=== PATIENT | female | born 1990 | race Hispanic/Latino ===

== ENCOUNTER 2021-08-26 14:27 | Inpatient (IN) | payer SELFPAY ==
[~2021-08-26] VITALS: Ht 162.6 cm; Wt 71.2 kg
--- NOTE | ~2021-08-26 | OR ---
[facility] [address] [place], [place] [address] Draft DATE OF OPERATION: 08/26/2021 SURGEON: Zenia Mcdermott DO PREOPERATIVE DIAGNOSES: 1. Intrauterine at 36 weeks gestation. 2. Concern for possible concealed abruption. 3. Non-reassuring heart tracing with tachycardia. 4. Chorioamnionitis. POSTOPERATIVE DIAGNOSES: 1. Intrauterine at 36 weeks gestation. 2. Non-reassuring heart tracing with tachycardia. 3. Chorioamnionitis. PROCEDURE PERFORMED: Primary low-transverse delivery. ANESTHESIA: Spinal. INSTALLATION MANAGER: Duane Asif MD ESTIMATED BLOOD LOSS: 1000 mL. COMPLICATIONS: None. DRAINS: Dominguez to gravity. FINDINGS: Delivery of a viable female in the LOP position with no nuchal cord. Clear amniotic fluid. Normal uterus, placenta, and bilateral fallopian tubes. Normal left ovary. Right ovary with a streak appearance. See laboratory for cord gases that are normal. COMPLICATIONS: PATIENT NAME: MERLENE MARTINS OPERATIVE REPORT DATE OF : [birth year] REPORT #: [id number] PHYSICIAN: ZENIA MCDERMOTT DO PCP: ZENIA MCEDRMOTT DO REPORT IS CONFIDENTIAL AND NOT TO BE RELEASED WITHOUT AUTHORIZATION [facility] [address] [place] [address] [place] None. INDICATIONS: Ms. Andre Brooke is a pleasant 31-year-old female with intrauterine at 36 weeks gestation. She presented to Labor and Delivery this morning with severe abdominal pain and contractions. During admission, the patient was noted to have maternal temperature that resolved with oral Tylenol and tachycardia that resolved with IV fluids. On exam, the patient with a small amount of dark vaginal bleeding that was felt to be from the cervical polyp and cervical ectropion. She was admitted to observation status. The patient with very painful regular contractions, uterine and abdominal tenderness, and then developed a return of tachycardia and temperature. Given maternal heart rate in the 150s and heart rate of nearly 200, decision was made to proceed with primary delivery for possible concealed abruption. Risks, benefits, and alternatives were discussed in detail with the patient. The patient understand, wished to proceed with the procedure. TECHNIQUE: The patient was taken to the operating room. A time-out was performed to confirm correct patient and correct procedure. Spinal anesthesia was adequately established. The patient was then prepped and draped in the supine position with a bump under the right hip. Dominguez catheter was inserted and the patient received ampicillin, gentamicin, Flagyl, and azithromycin preoperatively. No heparin was indicated. Once spinal was demonstrated to be adequate, a Pfannenstiel skin incision was made using a surgical scalpel, carried down to the fascia. The fascia was nicked in the midline. The fascial incision was extended bilaterally using curved Bailey scissors. The fascia was grasped with Kwame's, elevated, and the underlying rectus dissected off bluntly and sharply. The rectus was divided in midline bluntly and the peritoneum was entered bluntly. The peritoneal incision was extended bilaterally using blunt dissection. An Joe self retractor was placed and the lower uterine segment identified. Hysterotomy was performed using surgical scalpel and clear amniotic fluid was noted. The surgeon's hand was placed in the uterine cavity and the vertex elevated into the abdomen in the LOP position. The was delivered easily with the assistance of fundal pressure. No nuchal cord was identified. Cord was doubly clamped and cut and the handed to the waiting pediatric team for further care. Cord blood was obtained for gases and for routine analysis. The placenta was then expressed intact with a centrally inserted 3-vessel cord sent to pathology for further evaluation. The uterus was cleared of products of conception and clot. Initial bleeding was noted to be quite heavy with a boggy uterus. This was quickly improved using compression with surgeon's hands, 60 units of Pitocin and 1 liter of LR bolus, and tranexamic acid 1 g IV. The hysterotomy was then repaired using 0 Monocryl in a running locked manner. A second imbricating suture of 2-0 Monocryl was applied. Small hematoma was noted in the left uterine artery and this were made hemostatic with a pyykpy-pb-sruoc O'Geneva stitch. The pelvis was PATIENT NAME: MERLENE MARTINS OPERATIVE REPORT DATE OF : 88 REPORT #: [id number] PHYSICIAN: ZENIA MCDERMOTT DO PCP: ZENIA MCDERMOTT DO REPORT IS CONFIDENTIAL AND NOT TO BE RELEASED WITHOUT AUTHORIZATION [address] [address] [place] irrigated and hemostasis obtained with Bovie electrocautery and [id number] of small oozing serosa of the uterus. Normal left tube and ovary. The right fallopian tube is normal, but the left ovary is not readily identified. The patient denies any history of oophorectomy and on closer inspection somewhat of a streak appearance of the right ovary noted between the infundibulopelvic ligament and the utero-ovarian ligament. The pelvis was again noted to be hemostatic and the peritoneum was then reapproximated using 2-0 Vicryl in a running nonlocked manner. Rectus was then examined, found to be hemostatic. It was then plicated in the midline loosely with interrupted stitches of 0 Vicryl. The fascia was then reapproximated using 0 Vicryl in a running nonlocked manner. Subcu was irrigated and made hemostatic with the judicious use of Bovie electrocautery. Subcu was then reapproximated using 3-0 Vicryl in a running nonlocked manner. Skin was reapproximated using surgical nicole. The uterus was Crede'd for scant amount of blood and the patient was taken to PACU in stable condition. Sponge, instrument, and needle count was correct x2 at the end of the procedure. Dr. Asif was present for all portions of procedure. Zenia Mcdermott DO JTYRELL/SHERRI /[id number] Copies: ~ PATIENT NAME: MERLENE MARTINS OPERATIVE REPORT DATE OF : [birth year] REPORT #: [id number] PHYSICIAN: ZENIA MCDERMOTT DO PCP: ZENIA MCDERMOTT DO REPORT IS CONFIDENTIAL AND NOT TO BE RELEASED WITHOUT AUTHORIZATION
--- NOTE | ~2021-08-26 | OR ---
[facility] [address] [facility] [place] [address] Cancelled DATE OF OPERATION: 08/26/2021 SURGEON: Zenia Mcdermott DO PREOPERATIVE DIAGNOSES: 1. Intrauterine at 36 weeks gestation. DICTATION ENDS HERE DO SUZETTE Anderson/SHERRI /[id number] Copies: ~ PATIENT NAME: MERLENE MARTINS OPERATIVE REPORT DATE OF : [birth year] REPORT #: [id number] PHYSICIAN: ZENIA MCDERMOTT DO PCP: ZENIA MCDERMOTT DO REPORT IS CONFIDENTIAL AND NOT TO BE RELEASED WITHOUT AUTHORIZATION
--- NOTE | 2021-08-26 14:34 | PR ---
[facility] [address] [place], [place] [address] Signed Progress Notes IP Datetime Report Generated by TEA: 08/26/2021 14:34 PROGRESS NOTES: [id number] Impression: Non-reassuring Heart Rate; Intrauterine Infection Other Impressions: Possible abruption Plan: Deliver- Section Informed Consent Obtain: Section Delivery; Risks, Benefits and Alternatives Discussed VITAL SIGNS: [id number] Vital Signs: Reviewed EXAM: [id number] Dilatation: 1.0 Effacement: 50 Station: -2 Contractions: q 2-3 min MEMBRANES: [id number] Comments: Called to pt room. Notified of maternal temp 103.1, tachycardia, and maternal tachycardia. Bedside evaluation demonstrates tender abdomen and small blood clot evacuated by Dr. Robert just prior to my arrival. Discussed concern for possible abruption and recommended emergent delivery via primarly LTCS. Risks/benefits discussed and pt and understand and agree. FETUS A: [id number] FHR Baseline: 160 Variability: Moderate 6-25bpm Accelerations: 15X15 Decelerations: None FHR Category: Category II Presentation: Vertex Comments on Fetus A: No evidence of metabolic acidosis FETUS B: [id number] Signing Physician: Zenia Mcdermott DO Copies: ~ *Electronically Signed* 08/26/21 1436 ZENIA MCDERMOTT DO PATIENT NAME: MERLENE MARTINS PROGRESS NOTE DATE OF : 88 PHYSICIAN: ZENIA MCDERMOTT DO RPT #: [id number] REPORT IS CONFIDENTIAL AND NOT TO BE RELEASED WITHOUT AUTHORIZATION
--- NOTE | 2021-08-26 16:19 | NUR ---
08/26/21 1619 Sheets,Elaine 1531 PT ARRIVED TO PACU ON RA AND REPORT FROM MASTER OCEAN. PT RESTING IN BED AND REPORTS A HEADACHE. MASTER OCEAN AWARE. VSS. PT DENIES PAIN AND NAUSEA. 1600 INCREASE IN BP NOTED AND RN TAKES MANUAL BP, NOT WITHIN NORMAL. PT NOTED TO BE SHAKING AND TEMP NOTED. MD AWARE AND NEW ORDER RECEIVED. PT CONTINUES TO DENY PAIN AND NAUSEA. 1609 MEDICATION GIVEN PER EMAR. 1617 MD AT BEDSIDE TALKING TO PT AND .
--- NOTE | 2021-08-26 19:45 | PR ---
[facility] [address] [place], [place] [address] Signed PP Progress Notes Datetime Report Generated by CPN: 08/26/2021 19:45 SUBJECTIVE: [id number] Pain: Within Normal Limits Nausea/Vomiting: Denies Flatus: No Bowel Movement: No Vital Signs: [id number] Vital Signs: Reviewed Notable Details: hypotension improved, mild tachycardia, good urine output EXAM: Ongoing Cardiovascular: Normal Respiratory: Normal Abdomen/Uterus: Normal Lochia: Normal Vulva/Perineum: Not Done Breasts: Not Done CVA Tenderness: Not Done Extremities: Normal Incision: Normal Progress: Normal Exam Comments: Fundus firm U-2 nontender. Incision clean dry bandaging. Urine cath draining large amoung clear light yellow urine IMPRESSION/PLAN/PROCEDURES: [id number] Impression: Endometritis Plan: Continue Present Management; Antibiotic Therapy Progress Notes: Pt seen and examined. Doing well. Sitting up in bed . Laughing and reports that she feels very good. Denies fever or malaise. Afebrile. Will check CBC. CMP ordered by Dr. Robert normal. Continue Abx for at least 24 hrs afebrile. All questions answered. Signing Physician: Zenia Mcdermott DO Copies: ~ *Electronically Signed* 08/26/211944 ZENIA MCDERMOTT DO PATIENT NAME: DANDRE LANDMERLENEFAIZAN PROGRESS NOTE DATE OF : 89 PHYSICIAN: ZENIA MCDERMOTT DO RPT #: [id number] REPORT IS CONFIDENTIAL AND NOT TO BE RELEASED WITHOUT AUTHORIZATION
--- NOTE | 2021-08-27 08:57 | PR ---
[facility] [address] [place], [place] [address] Signed PP Progress Notes Datetime Report Generated by CPN: 08/27/2021 08:57 SUBJECTIVE: [id number] Pain: Within Normal Limits Nausea/Vomiting: Denies Flatus: Yes Bowel Movement: No Vital Signs: [id number] Vital Signs: Reviewed Notable Details: Afebrile, mild tachy 100's, good urine output. EXAM: Ongoing Cardiovascular: Normal Respiratory: Normal Abdomen/Uterus: Normal Lochia: Not Done Vulva/Perineum: Not Done Breasts: Not Done CVA Tenderness: Normal Extremities: Normal Incision: Normal Progress: Abnormal Exam Comments: Fundus firm U-2 nontender. Bandage clean / dry IMPRESSION/PLAN/PROCEDURES: [id number] Impression: Normal Progression; Difficulties Other Impression: Fever resolved Plan: Continue Present Management; Antibiotic Therapy Procedures: Antibiotics Progress Notes: Pt seen and examined. Doing very well. No fevers or chills overnight. Pt reports that she "feels great and not sick at all." Good urine output. Hgb 9.5, WBCs 14.8, and normal CMP. Pain and lochia minimal. with some difficulty with latch. Will have RN help patient. Plan to continue abxs until 24 hrs afebrile and then will discontinue. D/C porras and ambulate ad mason. All questions answered. Signing Physician: Zenia Mcdermott DO Copies: *Electronically Signed* 08/27/21 0857 ZENIA MCDERMOTT DO PATIENT NAME: MERLENE MARTINS PROGRESS NOTE DATE OF : [birth year] PHYSICIAN: ZENIA MCDERMOTT DO RPT #: [id number] REPORT IS CONFIDENTIAL AND NOT TO BE RELEASED WITHOUT AUTHORIZATION [facility] [address] [place] [address] Signed ~ *Electronically Signed* 08/27/21 0857 ZENIA MCDERMOTT DO PATIENT NAME: MERLENE MARTINS PROGRESS NOTE DATE OF : [birth year] PHYSICIAN: ZENIA MCDERMOTT DO RPT #: [id number] REPORT IS CONFIDENTIAL AND NOT TO BE RELEASED WITHOUT AUTHORIZATION
--- NOTE | 2021-08-28 13:58 | PR ---
[facility] [address] [facility] [place], [place] [address] Signed PP Progress Notes Datetime Report Generated by CPN: 08/28/2021 13:58 SUBJECTIVE: [id number] Pain: Within Normal Limits Nausea/Vomiting: Denies Flatus: Yes Bowel Movement: No Vital Signs: [id number] Vital Signs: Reviewed; Within Normal Limits Notable Details: Afebrile, mild tachy 100's, good urine output. EXAM: Ongoing Cardiovascular: Normal Respiratory: Normal Abdomen/Uterus: Normal Lochia: Normal Vulva/Perineum: Not Done Breasts: Not Done CVA Tenderness: Normal Extremities: Normal Incision: Normal Progress: Normal Exam Comments: Fundus firm U-2 nontender. Incision well healing. IMPRESSION/PLAN/PROCEDURES: [id number] Impression: Normal Progression Other Impression: Fever resolved Plan: Continue Present Management Procedures: Antibiotics Progress Notes: Pt seen and examined. Doing well. Ambulating, voiding, and tolerating full diet. Pain and lochia minimal. with much better latch. No fevers and pt continues to feel very well. Awaiting blood culture results. Anticipate d/c tomorrow Signing Physician: Zenia Mcdermott DO Copies: ~ *Electronically Signed* 08/28/21 2750 ZENIA MCDERMOTT DO PATIENT NAME: MERLENE MARTINS PROGRESS NOTE DATE OF : [birth year] PHYSICIAN: ZENIA MCDERMOTT DO RPT #: [id number] REPORT IS CONFIDENTIAL AND NOT TO BE RELEASED WITHOUT AUTHORIZATION
--- NOTE | 2021-08-29 12:48 | PR ---
[facility] [address] [facility] [place], [place] [address] Signed PP Progress Notes Datetime Report Generated by CPN: 08/29/2021 12:48 SUBJECTIVE: [id number] Pain: Within Normal Limits Nausea/Vomiting: Denies Flatus: Yes Bowel Movement: Yes Vital Signs: [id number] Vital Signs: Reviewed; Within Normal Limits Notable Details: Afebrile, mild tachy 100's, good urine output. EXAM: Met Cardiovascular: Normal Respiratory: Normal Abdomen/Uterus: Normal Lochia: Normal Vulva/Perineum: Not Done Breasts: Not Done CVA Tenderness: Normal Extremities: Normal Incision: Normal Progress: Normal Exam Comments: Fundus firm U-2 nontender. Incision well healing IMPRESSION/PLAN/PROCEDURES: [id number] Impression: Normal Progression Other Impression: Fever resolved Plan: Discharge Procedures: Antibiotics Progress Notes: Pt seen and examined. Doing well. Ambulating, voiding, and tolerating full diet. Pain and lochia minimal. well. No fevers/chills or other concerns. Desires d/c home. Baby doing well and baby blood cultures negative. F/U 2wk pp Signing Physician: Zenia Mcdermott DO Copies: ~ *Electronically Signed* 08/29/21 1248 ZENIA MCDERMOTT DO PATIENT NAME: MERLENE MARTINS PROGRESS NOTE DATE OF : 89 PHYSICIAN: ZENIA MCDERMOTT DO RPT #: [id number] REPORT IS CONFIDENTIAL AND NOT TO BE RELEASED WITHOUT AUTHORIZATION
--- NOTE | 2021-08-30 09:02 | PATH ---
[facility] [address] [place], [place] [address] Signed SPECIMEN(S): A PLACENTA SPECIMEN SOURCE: Brenda langley CLINICAL HISTORY: Mother's age: 31. OB history: A1 (not specified spontaneous/elective). Gestational age: 36 and 2. Infant's weight: 5 lbs 4 oz. score: 9/9. Length of umbilical cord at delivery: Normal. Rhogam: No. Maternal serologies: Rubella immune, RPR , hepatitis screen NR, GBS unknown. Specific issues of concern: ; possible chorioamnionitis; intolerance. FINAL PATHOLOGIC DIAGNOSIS: Placenta, third trimester, section: - Blankenship placenta, appropriate weight for stated gestational age of 36 weeks, 2 days. - Umbilical cord: Three-vessel umbilical cord with no histopathologic abnormality. - membranes: Adherent clotted blood and necrotic decidua. - Disc: Chorionic villi with appropriately mature villous morphology. NAL:C2NR MICROSCOPIC EXAMINATION: Histologic sections of all submitted blocks are examined by light microscopy. These findings, together with the gross examination, support the pathologic diagnosis. GROSS DESCRIPTION: The specimen, labeled "[place], placenta," is received in formalin and consists of a blankenship discoid placenta with the following parameters: Umbilical cord: Insertion eccentric, measurement 10.6 x 1.3 cm; trivascular. Cord coiling index (per 10 cm): Three. Lesions: Not grossly identified. Membranes: Insertion site: 10% circum-marginate, wilcox/translucent, rupture site unable to determine. Fragmented. Other: Not grossly identified. Chorionic Plate: Normal radiating vascular pattern, blue-purple and shiny. Lesions: Not grossly identified. Other: Not grossly identified. Maternal Surface: Normal cotyledons, fragmented. Lesions: Not grossly identified. Measurement: 18.1 x 16.0 x 3.1 cm. Weight (trimmed): 394 grams. PATIENT NAME: MERLENE MARTINS PATHOLOGY DATE OF : 88 REPORT #: [id number] PHYSICIAN: PORSCHE WOODS PCP: ZENIA SANCHEZ DO REPORT IS CONFIDENTIAL AND NOT TO BE RELEASED WITHOUT AUTHORIZATION [facility] [address] [place], [place] [address] Signed Cut Surface: Maroon and spongy. Lesions: Not grossly identified. Basal plate fibrin measures 0.1 cm in thickness. Other Findings: Not grossly identified. Cassette Summary: (A1) Membranes and umbilical cord (A2) Placenta parenchyma (A3) Placenta parenchyma (A4) Placenta parenchyma AT (under the direct supervision of a pathologist) The Gross Description was prepared using a voice recognition system. The report was reviewed for accuracy; however, sound-alike word errors, addition and/or deletions may occur. If there is any question about this report, please contact Client Services. PERFORMING LABORATORY: The technical component was performed by [employer], [address] [place] [address] (Spot Man: Guillermina Alejo MD; CLIA# [id number]). Professional interpretation was performed by [facility], [address] [address] (CLIA# [id number]). Diagnostician: Samantha Blackburn MD Pathologist Electronically Signed 08/30/2021 Copies: ~ PATIENT NAME: MERLENE MARTINS PATHOLOGY DATE OF : 89 REPORT #: [id number] PHYSICIAN: PORSCHE PATHOLOGY PCP: ZENIA SANCHEZ DO REPORT IS CONFIDENTIAL AND NOT TO BE RELEASED WITHOUT AUTHORIZATION
== END 2021-08-29 15:50 | disposition home or self-care (01) | DRG 786 ==
LOC: FBC 14:27
PROVIDERS: ADMIT Obstetrics & Gynecology; ATTEND Obstetrics & Gynecology
PROC: 10D00Z1 Extraction of Products of Conception, Low, Open Approach (ICD-10-PCS; principal; 2021-08-26 14:41)
DX: O60.14X0 Preterm labor third trimester with preterm delivery third trimester, not applicable or unspecified (principal); O41.1230 Chorioamnionitis, third trimester, not applicable or unspecified; O75.3 Other infection during labor; D62 Acute posthemorrhagic anemia; Z3A.36 36 weeks gestation of pregnancy; Z37.0 Single live birth; O99.02 Anemia complicating childbirth; O76 Abnormality in fetal heart rate and rhythm complicating labor and delivery; O99.824 Streptococcus B carrier state complicating childbirth; N71.9 Inflammatory disease of uterus, unspecified
CPT/HCPCS: 01961; 36415; 80053; 80170; 82803; 85025; 86922; A9270; J0290; J1100; J1580; J1650; J2001; J2274; J2370; J2405; J2590; J3010; J7060; J7121